=== PATIENT | female | born 1935 | race Caucasian/White ===

== ENCOUNTER 2021-07-09 06:29 | Day surgery (SDC) | payer MEDICARE, OTHER ==
[~2021-07-09 06:29] MED LIST: Lactated Ringers 1,000 ML IV SCH; Sodium Chloride 0.9% 10 ML Syringe FLUSH PRN
[2021-07-09] MEDS ORDERED: fentaNYL 100 MCG/2 ML SDV IV ONE (06:30)
[2021-07-09] MEDS ORDERED: Propofol 200 MG/20 ML SDV IV ONE (06:30)
[2021-07-09] MEDS ORDERED: Dexmedetomidine 200 MCG/2 ML SDV IV ONE (06:30)
[2021-07-09] MEDS ORDERED: Ondansetron 4 MG/2 ML SDV IVPUSH ONE (06:30)
[2021-07-09] MEDS ORDERED: ceFAZolin 2 GM in Sodium Chloride 0.9% 100 ML IV ONE (07:30)
[2021-07-09] MEDS ORDERED: Bupivacaine 0.5% 30 ML SDV INJECT ONE (07:47)
[2021-07-09] MEDS ORDERED: Lidocaine 1% with EPINEPHrine 1:100,000 20 ML MDV INJECT ONE (07:47)
[2021-07-09] MEDS ORDERED: Non-Formulary Medication 1 Each (Cholecalciferol (Vitamin D3) [Vitamin D3] 50 MCG Tablet) PO SCH (09:00)
[2021-07-09] MEDS ORDERED: Non-Formulary Medication 1 Each (Cinacalcet [Sensipar] 30 MG Tablet) PO SCH (09:00)
[2021-07-09] MEDS ORDERED: Fish Oil/Omega-3 Fatty Acids 1 Gm Cap PO SCH (09:00)
[2021-07-09] MEDS ORDERED: Losartan 100 MG Tab PO SCH (09:00)
== END 2021-07-09 09:13 | disposition home or self-care (01) ==
LOC: FB.SDS 06:29
PROVIDERS: ATTEND Surgery
DX: M79.89 Other specified soft tissue disorders (principal); I10 Essential (primary) hypertension; E66.9 Obesity, unspecified; Z79.899 Other long term (current) drug therapy
CPT/HCPCS: 00400-QZ; 88304; J2405; J2704; J3010; J3490; J7120

== ENCOUNTER 2022-06-07 16:37 | Emergency (ER) | payer MEDICARE, OTHER ==
[2022-06-07] MEDS ORDERED: Labetalol 20 MG/4 ML Syringe IVPUSH ONE (16:53)
[2022-06-07] MEDS: Sodium Chloride 0.9% 10 ML Syringe FLUSH PRN ×2 (17:08→17:18)
[2022-06-07 17:26] LABS: ESTIMATED GFR 55 mL/min (>60)
[2022-06-07] MEDS ORDERED: Metoprolol Succinate 25 MG Tab.ER PO ONE (18:01)
[2022-06-07] MEDS ORDERED: Apixaban 2.5 MG Tab PO ONE (18:02)
== END 2022-06-07 18:24 | disposition home or self-care (01) ==
LOC: FB.ED 16:37
DX: R60.0 Localized edema (principal); I48.91 Unspecified atrial fibrillation; I11.9 Hypertensive heart disease without heart failure; E66.9 Obesity, unspecified; Z68.36 Body mass index [BMI] 36.0-36.9, adult; Z79.899 Other long term (current) drug therapy; Z79.01 Long term (current) use of anticoagulants
CPT/HCPCS: 71045; 80053; 83735; 83880; 84484; 85025; 93005; 96374; 99285; A9270; J3490

== ENCOUNTER 2023-01-28 11:05 | Emergency (ER) | payer MEDICARE, OTHER ==
[2023-01-28] MEDS ORDERED: Sodium Chloride 0.9% 10 ML Syringe FLUSH PRN (11:25)
[2023-01-28] MEDS ORDERED: Pantoprazole 40 MG Vial IVPUSH ONE (11:45)
[2023-01-28] MEDS ORDERED: Meclizine 25 MG Tab PO ONE (11:45)
[2023-01-28] MEDS ORDERED: hydrALAZINE 20 MG/ML SDV IVPUSH ONE (11:45)
[2023-01-28 11:59] LABS: BASOPHILS PERCENT AUTO 0.6 % (0.2-1.5); EOSINOPHILS ABSOLUTE AUTO 0.1 x10-3/uL (0.0-0.8); EOSINOPHILS PERCENT AUTO 1.2 % (0.6-8.1); HEMATOCRIT 41.6 % (34.2-48.2); HEMOGLOBIN 13.9 g/dL (11.4-15.5); LYMPHOCYTES ABSOLUTE AUTO 2.4 x10-3/uL (1.0-4.4); LYMPHOCYTES PERCENT AUTO 30.3 % (18.4-52.1); MEAN CORPUSCULAR HEMOGLOBIN 28.3 pg (23.9-33.9); MEAN CORPUSCULAR HGB CONC 33.3 g/dL (31.9-34.8); MEAN CORPUSCULAR VOLUME 85.1 fL (76.7-100.5); MEAN PLATELET VOLUME 7.5 fL (7.1-12.4); MONOCYTES ABSOLUTE AUTO 0.5 x10-3/uL (0.3-1.0); NEUTROPHILS ABSOLUTE AUTO 4.8 x10-3/uL (1.5-6.3); NEUTROPHILS PERCENT AUTO 60.9 % (30.8-76.2); PLATELET COUNT,PLT 264 x10(3)uL (151-488); RED BLOOD CELL COUNT 4.89 x10(6)uL (3.60-5.20); RED CELL DISTRIBUTION WIDTH 13.2 % (12.3-16.5); WHITE BLOOD CELL COUNT,WBC 7.8 x10-3/uL (3.0-10.3)
[2023-01-28] MEDS ORDERED: Atropine 0.4 MG/ML SDV ONE (11:59)
[2023-01-28] MEDS: Atropine 0.4 MG/ML SDV IVPUSH ONE ×2 (11:59→12:44)
[2023-01-28 12:00] LABS: BLOOD UREA NITROGEN,BUN 13 mg/dL (7-18); CALCIUM 10.8 mg/dL (8.6-10.2); CARBON DIOXIDE,CO2 27 mmol/L (21-32); CHLORIDE,CL 106 mmol/L (100-110); EST CRCL DRUG DOSING (CG) 32.17 mL/min; ESTIMATED GFR 54 mL/min (>60); GLUCOSE RANDOM 147 mg/dL (80-116); POTASSIUM,K 4.5 mmol/L (3.5-5.3); SODIUM,NA 142 mmol/L (135-145)
[2023-01-28 12:06] LABS: ALANINE AMINOTRANSFERASE,ALT 36 U/L (12-36); ALBUMIN 3.5 g/dL (3.2-4.6); ALKALINE PHOSPHATASE 129 IU/L (56-112); ASPARTATE AMNIOTRANSFERASE,AST 21 IU/L (5-25); PROTEIN TOTAL,TP 7.1 g/dL (6.0-8.0)
[2023-01-28 12:13] LABS: TROPONIN I 9.4 pg/mL (4.0-60.3)
[2023-01-28] MEDS ORDERED: LORazepam 2 MG/ML SDV IVPUSH ONE (12:49)
== END 2023-01-28 15:25 | disposition home or self-care (01) ==
LOC: FB.ED 11:05
DX: R42 Dizziness and giddiness (principal); K21.9 Gastro-esophageal reflux disease without esophagitis; R00.1 Bradycardia, unspecified; I10 Essential (primary) hypertension; E66.9 Obesity, unspecified; Z68.39 Body mass index [BMI] 39.0-39.9, adult; Z79.899 Other long term (current) drug therapy
CPT/HCPCS: 36415; 80053; 83880; 84484; 85025; 93005; 93010; 96374; 96375; 99284; 99284-25; A9270-GY; C9113; J0360; J0461; J2060

== ENCOUNTER 2023-01-30 17:51 | Emergency (ER) | payer MEDICARE, OTHER ==
[2023-01-30] MEDS ORDERED: Diltiazem 25 MG/5 ML SDV IVPUSH ONE (18:15)
[2023-01-30 18:22] LABS: BASOPHILS ABSOLUTE AUTO 0.1 x10-3/uL (0.0-0.1); BASOPHILS PERCENT AUTO 0.8 % (0.2-1.5); EOSINOPHILS ABSOLUTE AUTO 0.1 x10-3/uL (0.0-0.8); EOSINOPHILS PERCENT AUTO 0.8 % (0.6-8.1); HEMATOCRIT 42.7 % (34.2-48.2); HEMOGLOBIN 14.3 g/dL (11.4-15.5); LYMPHOCYTES ABSOLUTE AUTO 3.4 x10-3/uL (1.0-4.4); LYMPHOCYTES PERCENT AUTO 44.1 % (18.4-52.1); MEAN CORPUSCULAR HEMOGLOBIN 28.7 pg (23.9-33.9); MEAN CORPUSCULAR HGB CONC 33.6 g/dL (31.9-34.8); MEAN CORPUSCULAR VOLUME 85.3 fL (76.7-100.5); MEAN PLATELET VOLUME 7.4 fL (7.1-12.4); MONOCYTES ABSOLUTE AUTO 0.7 x10-3/uL (0.3-1.0); MONOCYTES PERCENT AUTO 8.5 % (4.4-15.7); NEUTROPHILS ABSOLUTE AUTO 3.6 x10-3/uL (1.5-6.3); NEUTROPHILS PERCENT AUTO 45.8 % (30.8-76.2); PLATELET COUNT,PLT 264 x10(3)uL (151-488); RED CELL DISTRIBUTION WIDTH 13.3 % (12.3-16.5); WHITE BLOOD CELL COUNT,WBC 7.7 x10-3/uL (3.0-10.3)
[2023-01-30] MEDS: Sodium Chloride 0.9% 10 ML Syringe FLUSH PRN ×2 (18:25→18:55)
[2023-01-30 18:26] LABS: CALCIUM 11.1 mg/dL (8.6-10.2); CARBON DIOXIDE,CO2 28 mmol/L (21-32); CHLORIDE,CL 107 mmol/L (100-110); CREATININE 1.1 mg/dL (0.55-1.02); ESTIMATED GFR 48 mL/min (>60); GLUCOSE RANDOM 115 mg/dL (80-116); POTASSIUM,K 3.7 mmol/L (3.5-5.3); SODIUM,NA 143 mmol/L (135-145)
[2023-01-30 18:33] LABS: ALANINE AMINOTRANSFERASE,ALT 42 U/L (12-36); ALBUMIN 3.9 g/dL (3.2-4.6); ALKALINE PHOSPHATASE 140 IU/L (56-112); ASPARTATE AMNIOTRANSFERASE,AST 24 IU/L (5-25); BILIRUBIN TOTAL 1.1 mg/dL (0.1-1.3); MAGNESIUM 1.9 mg/dL (1.8-2.5); PROTEIN TOTAL,TP 7.7 g/dL (6.0-8.0)
[2023-01-30] MEDS ORDERED: Labetalol 20 MG/4 ML Syringe IVPUSH ONE (18:44)
[2023-01-30] MEDS ORDERED: Labetalol 20 MG/4 ML Syringe ONE (18:45)
[2023-02-01 07:46] LABS: BLOOD UREA NITROGEN,BUN 13 mg/dL (7-18); BUN/CREATININE RATIO 11.8 (9-20)
== END 2023-01-30 19:44 | disposition home or self-care (01) ==
LOC: FB.ED 17:51
DX: I48.91 Unspecified atrial fibrillation (principal); I10 Essential (primary) hypertension; E66.9 Obesity, unspecified; Z68.34 Body mass index [BMI] 34.0-34.9, adult; Z79.01 Long term (current) use of anticoagulants; Z79.899 Other long term (current) drug therapy
CPT/HCPCS: 36415; 80053; 83735; 84484; 85025; 93005; 93010; 96374; 96375; 99284; 99285-25; J3490

== ENCOUNTER 2024-09-10 10:37 | Emergency (ER) | payer MEDICARE, OTHER ==
[2024-09-10] MEDS: Aspirin 81 MG Tab.Chew PO ONE (10:58)
[2024-09-10 11:08] LABS: BASOPHILS ABSOLUTE AUTO 0.1 x10-3/uL (0.0-0.1); EOSINOPHILS ABSOLUTE AUTO 0.1 x10-3/uL (0.0-0.8); EOSINOPHILS PERCENT AUTO 0.7 % (0.6-8.1); HEMOGLOBIN 13.7 g/dL (11.4-15.5); LYMPHOCYTES ABSOLUTE AUTO 2.2 x10-3/uL (1.0-4.4); LYMPHOCYTES PERCENT AUTO 27.8 % (18.4-52.1); MEAN CORPUSCULAR HEMOGLOBIN 28.1 pg (23.9-33.9); MEAN CORPUSCULAR HGB CONC 33.5 g/dL (31.9-34.8); MEAN CORPUSCULAR VOLUME 83.8 fL (76.7-100.5); MEAN PLATELET VOLUME 7.9 fL (7.1-12.4); MONOCYTES ABSOLUTE AUTO 0.7 x10-3/uL (0.3-1.0); MONOCYTES PERCENT AUTO 8.5 % (4.4-15.7); PLATELET COUNT,PLT 257 x10(3)uL (151-488); WHITE BLOOD CELL COUNT,WBC 8.1 x10-3/uL (3.0-10.3)
[2024-09-10 11:10] LABS: BLOOD UREA NITROGEN,BUN 8 mg/dL (7-18); CALCIUM 10.9 mg/dL (8.6-10.2); CARBON DIOXIDE,CO2 27 mmol/L (21-32); CHLORIDE,CL 105 mmol/L (100-110); ESTIMATED GFR 54 mL/min (>60); GLUCOSE RANDOM 109 mg/dL (80-116); POTASSIUM,K 4.4 mmol/L (3.5-5.3); SODIUM,NA 139 mmol/L (135-145)
[2024-09-10 11:22] LABS: A/G RATIO 1.1; ALANINE AMINOTRANSFERASE,ALT 28 U/L (12-36); ALBUMIN 3.7 g/dL (2.9-4.5); ALKALINE PHOSPHATASE 170 IU/L (56-112); ASPARTATE AMNIOTRANSFERASE,AST 20 IU/L (5-25); BILIRUBIN TOTAL 1.2 mg/dL (0.1-1.3); PROTEIN TOTAL,TP 7.1 g/dL (6.0-8.0)
[2024-09-10] MEDS: Iopamidol 755 Mg/ML 100 ML Bottle IV SCH (12:03)
== END 2024-09-10 13:50 | disposition home or self-care (01) ==
LOC: FB.ED 10:37
DX: M25.512 Pain in left shoulder (principal); K42.9 Umbilical hernia without obstruction or gangrene; D73.5 Infarction of spleen; I10 Essential (primary) hypertension; E66.9 Obesity, unspecified; Z79.899 Other long term (current) drug therapy; Z68.33 Body mass index [BMI] 33.0-33.9, adult
CPT/HCPCS: 36415; 71045; 74177; 80053; 84484; 85025; 93005; 99284; A9270; Q9967